=== PATIENT | male | born 1995 | race African-American/Black ===

== ENCOUNTER 2022-11-13 13:13 | Emergency (ER) | payer MEDICAID, SELFPAY ==
--- NOTE | ~2022-11-13 | XR_ITS ---
EXAMINATION: XR ANKLE, LEFT CLINICAL INFORMATION: Swelling pain COMPARISON: None available. TECHNIQUE: AP, lateral, and mortise views of the left ankle. FINDINGS: No acute visible fracture or dislocation. The ankle mortise is symmetric. Slight spurring the dorsal midfoot. Soft tissue prominence along the medial malleolus. XR/XR ankle LT min 3V IMPRESSION: 1. No acute visible fracture or dislocation. 2. Slight spurring the dorsal midfoot. 3. Soft tissue prominence along the medial malleolus.
[2022-11-13 13:22] VITALS: BP 115/62; BP 118/76; PULSE 85; PULSE 95; RESP 18; TEMP 36.7; O2SAT 97; BMI 36.7
[2022-11-13 15:13] LABS: D Dimer High Sensitivity < 150 NG/ML
--- NOTE | 2022-11-13 15:19 | ED.GENADULT ---
HPI - General Adult General Chief complaint: General Medical Stated complaint: L LEG SWELLING FROM SNF PER EMS Time Seen by Provider: 11/13/22 13:32 Source: patient and EMS Mode of arrival: EMS History of Present Illness HPI narrative: 27-year-old male who is brought in from care 1 where staff reports that patient has swelling to left ankle in foot, mobile x-ray was apparently canceled. Patient denies any traumatic injury and states that he barely walks at baseline and denies any fevers or chills. Related Data Allergies Allergy/AdvReac Type Severity Reaction Status Date / Time No Known Allergies Allergy Verified 11/13/22 13:31 Review of Systems Review of Systems: Pertinent positives and negatives as stated in HPI PMFSH Past Medical History Source: nursing notes reviewed Social History Social History Alcohol intake: former Smoked in Last 30 Days: Yes Use of substances other than those prescribed or required for medical reasons: Yes Substance Use Type: Marijuana Advance Directives: No Physical Exam ED Vital Signs: Vital Signs - 24 hr 11/13/22 13:22 Temperature 98.0 F Pulse Rate 85 Respiratory Rate 18 Blood Pressure 115/62 Pulse Oximetry 97 Oxygen Delivery Method Room Air BMI result Body Mass Index 36.7 VITAL SIGNS: Reviewed. GENERAL: Well developed, well nourished, in no acute distress. HEAD: Normocephalic/atraumatic EYES: PERRLA, EOMI LUNGS: Normal breath sounds. No adventitious sounds or accessory muscle use. SpO2<97> CARDIOVASCULAR: Regular rate and rhythm without noted murmurs ABDOMEN: Soft, non-tender, non-distended with bowel sounds. MUSCULOSKELETAL: No tenderness, deformities, or effusions noted on gross inspection. EXTREMITIES: No cyanosis, clubbing or edema; LEFT ANKLE: There is 1+ pitting edema to the medial malleolus, there is no erythema or induration, foot is warm, pulses are palpable, no proximal swelling or enlargement, on comparison to right ankle left ankle is fairly edematous, there is minimal tenderness to palpation. SKIN: Inspection of the skin reveals no rashes NEUROLOGIC: Alert and oriented x 3. Strength and sensation to light touch were grossly intact x 4 at baseline patient is primarily bed ridden. Medical Decision Making Medical Decision Making MDM Narrative: 27-year-old male with atraumatic trace left ankle swelling without clinical exam or history to suggest cellulitis, review of x-ray is negative for fracture or dislocation and otherwise my interpretation is in agreement with radiology's impression. D-dimer is negative and low clinical suspicion for DVT. Patient will have Wellington wrap put in place and he can undergo further outpatient workup as indicated by primary care provider. Differential Diagnosis Differential Diagnoses: The differential diagnosis associated with the presentation includes Please see the discussion above Admission/Observation Consideration of admission/observation: Escalation of care including admission/observation considered Please see the discussion above Lab Data MDM Lab Attestation statement: I reviewed the patient's lab results. Please see the discussion above Labs: Lab Results 11/13/22 Range/Units 14:50 D-Dimer High Sensitivty < 150 NG/ML Radiology Impression Radiologist Impression: No fracture dislocation, otherwise my interpretation is in agreement with radiology's impression. Discharge Plan Discharge Clinical Impression: Left ankle swelling Patient Disposition: Xfer Other Instructions: How to Use an Elastic Bandage (ED), Swollen Ankle Joint (ED) Additional Instructions: 1. Resume all home medications. 2. Follow-up with primary care provider Tuesday morning. Return to the ER for any worsening symptoms. Referrals: Marcos Garcia DO [Primary Care Provider] -
[2022-11-13 15:43] VITALS: BP 120/74; PULSE 62; RESP 18; TEMP 36.6; O2SAT 98
== END 2022-11-13 17:00 | disposition other institution (70) ==
PROVIDERS: Emergency Provider Student in an Organized Health Care Education/Training Program; PCP Hospitalist
DX: M25.472 Effusion, left ankle (principal); R60.0 Localized edema
CPT/HCPCS: 36415; 73610; 85379; 99283; 99284

== ENCOUNTER 2023-02-21 16:09 | Outpatient (REF) | payer MEDICAID, SELFPAY ==
--- NOTE | ~2023-02-21 | MR_ITS ---
EXAMINATION: MR RIGHT ANKLE WITHOUT CONTRAST MRI RIGHT FOOT WITHOUT CONTRAST CLINICAL INFORMATION: Edema. Unable to bear weight. COMPARISON: X-rays of the left ankle October 2022. TECHNIQUE: MRI of the ankle was performed using routine sequences on a high-field scanner. MRI of the right foot without contrast using routine sequence on a high-field MRI scanner. FINDINGS: LEFT ANKLE: Subcutaneous soft tissues: Generalized edema circumferentially about the ankle. Plantar fascia: Normal. Muscles/tendons: Mild heterogeneity of the distal Achilles tendon compatible with tendinosis or minimal intrasubstance partial tearing involving the distal 1 cm of the tendon. Remaining muscles and tendons unremarkable. Bursa: Normal. Neurovascular structures/tarsal tunnel: Normal. Ligaments: Anterior talofibular ligament: Attenuated compatible with old partial tear. Remaining ligaments intact. Bone/cartilage: Talonavicular joint: There is focal cartilage loss along the dorsal aspect of the joint with subchondral cystic change and some edema on the talar side of the joint. Overall mild/focal arthrosis. Remaining bone and joints normal. LEFT FOOT: Subcutaneous soft tissues: Mild generalized edema along the dorsal aspect of the foot. Distal plantar fascia: Normal. Muscles/tendons: Minimal increased T2 signal within the plantar muscles primarily the flexor digitorum brevis compatible with muscle contusion or mild muscle strain. Tendons intact. Ligaments and capsular structures: Normal. Bone/cartilage: There is prominent flexion at the MTP joints. The bone and joints are otherwise unremarkable. Neurovascular structures: Normal. MR/MR ankle LT wo con IMPRESSION: RIGHT ANKLE: 1. Mild generalized edema in the subcutaneous soft tissues. 2. Mild abnormality of the distal Achilles tendon compatible with tendinosis or minimal intrasubstance partial tearing. 3. Old partial tear of the anterior talofibular ligament. 4. Mild/focal arthrosis of the talonavicular joint. LEFT FOOT: 1. Mild abnormality of the plantar muscles compatible with muscle contusion or mild muscle strain. 2. Prominent flexion at the MTP joints.
== END 2023-02-21 16:10 | disposition home or self-care (01) ==
LOC: HO.MRI 16:09
PROVIDERS: PCP Hospitalist; Visit Provider Hospitalist
DX: M25.572 Pain in left ankle and joints of left foot (principal); R60.9 Edema, unspecified
CPT/HCPCS: 73718; 73721

== ENCOUNTER 2023-03-15 10:03 | Outpatient (REF) | payer MEDICAID, SELFPAY ==
--- NOTE | ~2023-03-15 | US_ITS ---
EXAMINATION: US ABDOMEN COMPLETE CLINICAL INFORMATION: Elevation of levels of liver transaminase levels. COMPARISON: None available. TECHNIQUE: Real-time imaging of the abdominal viscera. Technically difficult study secondary to patient being scanned in a chair. FINDINGS: PANCREAS: Limited visualization. ABDOMINAL AORTA: Visualized portions are normal. INFERIOR VENA CAVA: Visualized portions are normal. LIVER: Enlarged. The liver contour is normal. There is diffuse increased liver parenchymal echogenicity, consistent with hepatic steatosis. No focal hepatic lesion. There is no intrahepatic biliary duct dilatation seen. GALLBLADDER: The gallbladder is physiologically distended. Multiple mobile gallstones are present. No evidence of gallbladder wall thickening or pericholecystic fluid. Negative sonographic Taylor sign. COMMON BILE DUCT: Normal in caliber measuring 0.4 cm in diameter. Limited visualization. RIGHT KIDNEY: No hydronephrosis. No renal calculi or focal parenchymal lesions. The kidney measures 12.6 cm in maximum dimension. LEFT KIDNEY: No hydronephrosis. No renal calculi or focal parenchymal lesions. The kidney measures 11.7 cm in maximum dimension. Limited visualization. SPLEEN: The spleen measures 13.0 cm in maximum dimension. FREE FLUID: None. US/US abdomen complete IMPRESSION: Technically limited study. Hepatomegaly and hepatic steatosis. Mild splenic enlargement. Cholelithiasis without sonographic evidence of acute cholecystitis.
== END 2023-03-15 10:04 | disposition home or self-care (01) ==
LOC: HO.US 10:03
PROVIDERS: PCP Hospitalist; Visit Provider Hospitalist
DX: R74.01 Elevation of levels of liver transaminase levels (principal)
CPT/HCPCS: 76700

== ENCOUNTER 2023-03-24 14:55 | Outpatient (AMB) | payer MEDICAID, SELFPAY ==
--- NOTE | 2023-03-24 15:12 | MHC.OFFVIS ---
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 States his pain started about 2-3 months ago. States he is having pain when he applies pressure while doing P.T. Denies any recent injury, numbness or tingling. 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 He states he has pain in his right ankle which is aggravated with ambulation. He is working on physical therapy for his ankle. He denies any numbness or tingling and has not had any recent injury. [facility] Social History Alcohol intake: former Substance Use Type: Marijuana Review of Systems Const All systems reviewed & are unremarkable except as noted in HPI and below Physical Exam Vital Signs: BMI result Body Mass Index 36.6 Const General: cooperative, healthy appearing, comfortable, no acute distress, well developed and alert Orientation/consciousness: patient oriented x3 HEENT Head: Yes normal to inspection, Yes normocephalic and Yes atraumatic Eyes General: appearance normal, both eyes and all related structures Resp Effort & Inspection: normal respiratory effort and able to speak in complete sentences Cardio Rate: regular rate Peripheral pulses: Peripheral pulses 2+ throughout GI Palpation (GI): Soft to palpation Skin Lesions: no lesions Rashes: no rashes Neuro General: patient oriented x3 Extrem Other: Left ankle: Normal to inspection. No bony abnormality, no swelling. There is no significant point of tenderness over the medial or lateral malleolus. No pain over the syndesmosis. I can perform ROM without discomfort. NVI. Results Reviewed Results Reviewed: XR ankle LT min 3V 11/13/22 IMPRESSION: 1. No acute visible fracture or dislocation. 2. Slight spurring the dorsal midfoot. 3. Soft tissue prominence along the medial malleolus. MRI Left ankle 02/21/23 IMPRESSION: LEFT ANKLE: 1. Mild generalized edema in the subcutaneous soft tissues. 2. Mild abnormality of the distal Achilles tendon compatible with tendinosis or minimal intrasubstance partial tearing. 3. Old partial tear of the anterior talofibular ligament. 4. Mild/focal arthrosis of the talonavicular joint. Assessment & Plan Assessment & Plan (1) Left ankle sprain: Code(s): S93.402A - Sprain of unspecified ligament of left ankle, initial encounter Plan He resides at [facility]. He is currently doing physical therapy. I encouraged him to continue working with physical therapy for ROM, strength training and he can weight bear as tolerated. If symptoms persist or worsens, patient will contact the office, otherwise follow-up as needed. Patient Instructions: Scribed for Rambo Florence PA-C, by Randall Shaw medical data analyst, on 03/24/2023 at 3:00 PM EST. I, Rambo Florence PA-C, have personally reviewed and agree with the information entered by the scribe. Coding Level of Care Code New Pt Level 3 (35145) Diagnoses Left ankle sprain S93.402A
[2023-03-24 15:15] VITALS: BMI 36.6
== END 2023-03-24 15:52 | disposition home or self-care (01) ==
PROVIDERS: PCP Hospitalist; Visit Provider Physician Assistant
DX: S93.402A Sprain of unspecified ligament of left ankle, initial encounter (principal)
CPT/HCPCS: 99203

== ENCOUNTER → 2023-03-24 14:55 | Outpatient (BNVA) | payer MEDICAID, SELFPAY | PROVIDERS: PCP Hospitalist; Visit Provider Physician Assistant | DX: S93.402A Sprain of unspecified ligament of left ankle, initial encounter (principal) | CPT/HCPCS: 99202 ==

== ENCOUNTER → 2023-07-25 08:07 | Outpatient (BNVA) | payer MEDICAID, SELFPAY | PROVIDERS: PCP Hospitalist; Visit Provider Physician Assistant Surgical ==

== ENCOUNTER 2024-03-12 13:32 | Emergency (ER) | payer MEDICAID, SELFPAY ==
--- NOTE | ~2024-03-12 | XR_ITS ---
EXAMINATION: XR SHOULDER, LEFT CLINICAL INFORMATION: fall, shoulder pain COMPARISON: Fall. patient paralyzed on left side- unable to move arm, pt states fell out of bed, best obtainable TECHNIQUE: Three views of the left shoulder. FINDINGS: Exam limited by positioning. There is osteopenia. No displaced fracture. No dislocation. The acromioclavicular joint is normal. If pain persists consider follow-up study. XR/XR shoulder LT min 2V IMPRESSION: Exam limited by positioning. No displaced fracture. No dislocation. If pain persists consider follow-up studies. Electronically signed by: Jeffy Romero MD 03/12/2024 04:12 PM [facility]
--- NOTE | ~2024-03-12 | XR_ITS ---
EXAMINATION: XR ELBOW, LEFT CLINICAL INFORMATION: pain, fall COMPARISON: None available. TECHNIQUE: Two views of the left elbow. FINDINGS: The bones and soft tissues are normal. No fracture or joint effusion. Alignment is anatomic. Joint spaces are maintained. XR/XR elbow LT 2V IMPRESSION: Normal left elbow. Electronically signed by: Jeffy Romero MD 03/12/2024 04:10 PM [facility]
[2024-03-12 13:41] VITALS: BP 134/81; BP 138/80; PULSE 60; PULSE 76; RESP 16; TEMP 36.7; O2SAT 93; O2SAT 94; BMI 40.0
--- NOTE | 2024-03-12 14:29 | PC.NURSE ---
pt to xray at this time.
--- NOTE | 2024-03-12 14:53 | ED.EXTPRO ---
HPI - Extremity Problem General Chief complaint: Extremity Injury, Upper Stated complaint: FALL,LT SHLDR PAIN PER EMS Time Seen by Provider: 03/12/24 14:01 Source: EMS and RN notes reviewed Mode of arrival: EMS Limitations: other (TBI) History of Present Illness ED Provider: Dr. Isis Guerra HPI Narrative: Patient comes to the emergency room complaining of left shoulder pain. According to EMS, the staff at [facility] said that the patient had an unwitnessed fall 48 hours ago. Today, an x-ray was done and showed a fracture, patient was put in an immobilizer, EMS was called and brought to the emergency room. Patient can not give any significant history due to a previous traumatic brain injury. Related Data Home Medications ?Medication ?Instructions ?Recorded ?Confirmed aripiprazole 2 mg tablet 2 mg PO BEDTIME 03/24/23 baclofen 5 mg tablet 5 mg PO BEDTIME 03/24/23 trazodone 50 mg tablet 25 mg PO DAILY 03/24/23 donepezil 10 mg tablet 10 mg PO BEDTIME 07/25/23 propranolol 10 mg tablet 10 mg PO BID 07/25/23 sennosides 8.6 mg capsule (senna) 8.6 mg PO DAILY 07/25/23 sodium phosphates 19 gram-7 118 ml [place] DAILY PRN 07/25/23 gram/118 mL enema (Fleet Enema) Previous Rx's ?Medication ?Instructions ?Recorded ibuprofen 600 mg tablet 600 mg PO Q8H PRN fever or pain 03/12/24 #20 tabs Allergies Allergy/AdvReac Type Severity Reaction Status Date / Time No Known Allergies Allergy Verified 03/12/24 13:42 Review of Systems Review of Systems: Yes Other (TBI) [facility] Past Medical History Medical History (Updated 03/12/24 @ 16:27 by Isis Guerra MD) Traumatic brain injury Social History Social History Alcohol intake: former Substance Use Type: Marijuana Advance Directives: No Advance Directives Information Provided: Yes Do you have a plan to hurt others: No Plan Physical Exam Vital Signs: Vital Signs: Last Vital Signs Temp 98.1 F 03/12/24 13:41 Pulse 60 03/12/24 13:41 Resp 16 03/12/24 13:41 BP 138/80 03/12/24 13:41 Pulse Ox 93 03/12/24 13:41 O2 Del Method Room Air 03/12/24 13:41 BMI result Body Mass Index 40.0 Const: Other: Appearance: Alert. Oriented X3. No acute distress. Eyes: Pupils equal, round and reactive to light. ENT: Pharynx normal. Neck: Normal inspection. Neck supple. No lymph nodes noted. No crepitus CVS: Normal heart rate and rhythm. Pulses normal. Normal S1 and S2 Respiratory: No respiratory distress. Breath sounds normal. No Wheezing. No rales Abdomen: Soft and nontender. No rigidity. No distention. Skin: Skin warm and dry. Normal skin color. Normal skin turgor. Extremities: No lower extremity edema. No Lacerations. No Rash. Left arm is on a sling. Patient does not seem to be tender, however refusing to move the left arm/abduct left arm. Neuro: Oriented X 3. No motor deficit. No sensory deficit. Moving all extremities. No slurred speech. CN 2 through 12 grossly intact Psych: calm, cooperative, normal affect Course Course Course Narrative: Left Elbow and shoulder x-ray pending Medical Decision Making Medical Decision Making MDM Narrative: My interpretation x-ray of the shoulder and the elbow on the left: No obvious abnormality. -radiology report: No obvious fracture or dislocation -patient's arm was placed on a sling. Patient will follow-up with orthopedics Differential Diagnosis Differential Diagnoses: The differential diagnosis associated with the presentation includes (Left shoulder dislocation, fracture, contusion, labral tear, rotator cuff tear injury) Independent Interpretation I performed an independent interpretation of an: Plain X-Ray Radiology Impression Discussion of test interpretation with radiology: I have reviewed the radiologist's reading. Radiologist Impression: FINDINGS: Exam limited by positioning. There is osteopenia. No displaced fracture. No dislocation. The acromioclavicular joint is normal. If pain persists consider follow-up study. XR/XR shoulder LT min 2V IMPRESSION: Exam limited by positioning. No displaced fracture. No dislocation. If pain persists consider follow-up studies. Discharge Plan Discharge Clinical Impression: Injury of left shoulder Patient Disposition: Home, Self-Care Instructions: How to Use a Sling (ED) Additional Instructions: Please follow-up with your primary care physician tomorrow. If you have any worsening or new symptoms, please return to the emergency room or call 911 Prescriptions: New ibuprofen 600 mg tablet 600 mg PO Q8H PRN (Reason: fever or pain) Qty: 20 0RF No Action aripiprazole 2 mg tablet 2 mg PO BEDTIME baclofen 5 mg tablet 5 mg PO BEDTIME trazodone 50 mg tablet 25 mg PO DAILY donepezil 10 mg tablet 10 mg PO BEDTIME Fleet Enema 19-7 gram/118 mL enema 118 ml [place] DAILY PRN propranolol 10 mg tablet 10 mg PO BID senna 8.6 mg capsule 8.6 mg PO DAILY Referrals: Timo Thompson MD [Physician] - 03/13/24 Print Language: Welsh
[2024-03-12 16:22] VITALS: BP 152/72; PULSE 60; RESP 18; TEMP 36.8; O2SAT 97
--- NOTE | 2024-03-12 16:41 | PC.NURSE ---
pt up for discharge. transportation being arranged via BLS. ETA unknown - will notify pt as well as [facility] when able.
[2024-03-12 18:51] VITALS: BP 152/72; PULSE 60; RESP 18; TEMP 36.8; O2SAT 97
--- NOTE | 2024-03-12 18:51 | PC.NURSE ---
spoke w/ Iglesia RN at [facility] for report. pt picked up via [facility] at this time.
== END 2024-03-12 18:52 | disposition home or self-care (01) ==
PROVIDERS: Emergency Provider Emergency Medicine; PCP Hospitalist
DX: S49.92XA Unspecified injury of left shoulder and upper arm, initial encounter (principal); X58.XXXA Exposure to other specified factors, initial encounter; Y93.9 Activity, unspecified; Y92.9 Unspecified place or not applicable; Y99.9 Unspecified external cause status; M25.512 Pain in left shoulder; Z87.820 Personal history of traumatic brain injury; Z79.899 Other long term (current) drug therapy
CPT/HCPCS: 73030; 73070; 99283; 99284

== ENCOUNTER 2024-04-04 11:46 | Outpatient (AMB) | payer MEDICAID, SELFPAY ==
--- NOTE | 2024-04-04 11:49 | A.OFFVIS_ITS ---
Vital Signs 04/04/24 11:50 Height 6 ft Weight 295 lb BMI 40.0 Intake Visit Reasons: Newprob-left shoulder pain Intake Note: David a 28 year old right hand dominant male who presents today for an evaluation of left shoulder pain. Patient reports having an injury to his left shoulder from a fall. He avoids using his arm. Allergies No Known Allergies Allergy (Verified 04/04/24 12:03) Medication List - Last Reconciled 04/04/24 by Rambo Florence PA-C acetaminophen 650 mg PO Q6H PRN aripiprazole 2 mg PO BEDTIME baclofen 5 mg PO BEDTIME clonidine HCl ER 0.1 mg PO BID donepezil 10 mg PO BEDTIME ibuprofen 600 mg PO Q8H PRN propranolol 10 mg PO BID sennosides (senna) 8.6 mg PO DAILY sodium phosphates 19-7 gram/118 mL (Fleet Enema) 118 mL [place] DAILY PRN trazodone 25 mg PO DAILY HPI HPI Newprob-left shoulder pain: Details: 28-year-old right hand dominant male who presents to the office today for an evaluation of left shoulder pain. He reports he sustained a fall on his left shoulder about 3 weeks ago. He currently states he does not have much pain owever he avoids using his arm. [facility] Medical History (Updated 04/04/24 @ 13:14 by Rambo Florence PA-C) Traumatic brain injury Social History Alcohol intake: former Substance Use Type: Marijuana Review of Systems Const All systems reviewed & are unremarkable except as noted in HPI and below Physical Exam Vital Signs: BMI result Body Mass Index 40.0 Extrem Other: Left shoulder: Normal to inspection. No tenderness to palpation. Office Procedures AMB Fracture Care Fracture Billing Code: Fracture Billing Code Results Reviewed Results Reviewed: Xrays were obtained in the office today and personally reviewed by me of the left shoulder show proximal humerus fracture Assessment & Plan Assessment & Plan (1) Closed fracture of left proximal humerus: Code(s): S42.202A - Unspecified fracture of upper end of left humerus, initial encounter for closed fracture Category: Medical Qualifiers: Encounter type: initial encounter Fracture morphology: other fracture Fracture alignment: nondisplaced Qualified Code(s): S42.295A - Other nondisplaced fracture of upper end of left humerus, initial encounter for closed fracture Plan He will continue activities as tolerated as he is hemiplegic and wheelchair bound. I would like to see him back in 6 weeks with x-rays, sooner if needed. Patient Instructions: Scribed for Rambo Florence PA-C, by Randall Shaw medical service representative, on 04/04/2024 at 11:45 AM EST.? I, Rambo Florence PA-C, have personally reviewed and agree with the information entered by the scribe. Coding Level of Care Code Est Pt Level 3 (07547) Complex EM visit Add On G2211 Diagnoses Other closed nondisplaced fracture of proximal end of left humerus, initial encounter S42.295A Encounter type: initial encounter Fracture morphology: other fracture Fracture alignment: nondisplaced CPT Codes Fracture Care - Fracture Billing Code: Fracture Billing Code ([id number])
[2024-04-04 11:50] VITALS: BMI 40.0
== END 2024-04-04 12:07 | disposition home or self-care (01) ==
PROVIDERS: PCP Hospitalist; Visit Provider Physician Assistant
DX: S42.295A Other nondisplaced fracture of upper end of left humerus, initial encounter for closed fracture (principal)
CPT/HCPCS: 99213; G2211

== ENCOUNTER → 2024-04-04 11:46 | Outpatient (BNVA) | payer MEDICAID, SELFPAY | PROVIDERS: PCP Hospitalist; Visit Provider Physician Assistant | DX: S42.295A Other nondisplaced fracture of upper end of left humerus, initial encounter for closed fracture (principal); W05.0XXA Fall from non-moving wheelchair, initial encounter; Y93.9 Activity, unspecified; Y92.9 Unspecified place or not applicable; Y99.9 Unspecified external cause status; G81.90 Hemiplegia, unspecified affecting unspecified side; Z99.3 Dependence on wheelchair | CPT/HCPCS: 99212 ==

== ENCOUNTER 2024-05-10 08:26 | Outpatient (REF) | payer MEDICAID, SELFPAY ==
--- NOTE | ~2024-05-10 | US_ITS ---
EXAMINATION: US ABDOMEN LIMITED HISTORY: abnormal labs TECHNIQUE: Real-time grayscale ultrasound imaging of the right upper quadrant was performed and images were reviewed. COMPARISON: Comparison is made with the prior examination dated 03/15/2023. FINDINGS: The examination is technically limited due to difficulty in patient positioning and patient body habitus. Liver: The liver is normal in size, but demonstrates increased echotexture, consistent with steatosis. No focal mass or intrahepatic biliary ductal dilatation is identified. Gallbladder and biliary tree: There are multiple calculi in the gallbladder. There is no wall thickening or pericholecystic fluid. There is no sonographic Taylor sign. The common bile duct is normal in caliber measuring 3 mm. Right Kidney: The right kidney measures 12.3 cm in length. The right kidney is unremarkable, without evidence of masses, hydronephrosis, or calculi. Pancreas: The pancreas is obscured by bowel gas. Abdominal aorta and inferior vena cava: The visualized portions of the abdominal aorta and inferior vena cava are normal in caliber. There is no free fluid in the right upper quadrant. US/US abdomen limited IMPRESSION: Limited examination as described. Hepatic steatosis. Cholelithiasis without evidence of acute cholecystitis. Electronically signed by: Alfredito Reardon MD 05/10/2024 01:16 PM EST
== END 2024-05-10 08:27 | disposition home or self-care (01) ==
LOC: HO.US 08:26
PROVIDERS: PCP Hospitalist; Visit Provider Hospitalist
DX: R10.11 Right upper quadrant pain (principal)
CPT/HCPCS: 76705

== ENCOUNTER → 2024-05-10 08:49 | Outpatient (BNV) | payer MEDICAID, SELFPAY | PROVIDERS: PCP Hospitalist; Visit Provider Radiology Diagnostic Radiology | DX: R79.9 Abnormal finding of blood chemistry, unspecified (principal) | CPT/HCPCS: 76705 ==

== ENCOUNTER 2024-05-23 07:21 | Outpatient (REF) | payer MEDICAID, SELFPAY ==
--- NOTE | ~2024-05-23 | XR_ITS ---
CLINICAL HISTORY: M25.512 - Pain in left shoulder Radiographs of the left shoulder, 2 views Comparison: 03/12/24 Findings: There is osseous bridging of the previously seen fracture of the proximal humerus with some residual lucency. No dislocation. The joint spaces are preserved without osteophytosis. Bone mineralization is normal. No soft tissue swelling. Impression: Healing fracture of the proximal humerus. This document has been electronically signed by: Skye Real MD on 05/23/2024 17:59:47
--- OUTSIDE RECORDS SUMMARY | 2024-05-23 07:23 | XMS_ITS | Encounter Summary ---
Author Organization [facility] Address [address] [place] [address] Care Team Providers Care Ventilation Worker Name Role Phone Marcos Garcia MD Primary Care Provider [phone] Encounter Details Date Type Department Care Team (Late st Contact Info) Description 02/29/2024 Lab Requisition [facility] Lab [address] [facility] [employer] [place] [address] Marcos Garcia MD [address] [place] [address] [address] [place] Essential (primary) hypertension Social History Tobacco Use Types Packs/Day Years Used Date Smoking Tobacco: Never Assessed Sex and Gender Information Value Date Recorded Sex Assigned at Not on file Gender Identity Not on file Sexual Orientation Not on file documented as of this encounter Plan of Treatment Not on file documented as of this encounter Procedures Procedure Name Priority Date/Time Associated Diagnosis Comments COMPLETE BLOOD COUNT Routine 02/29/2024 7:54 AM EST Essential (primary) hypertension AMMONIA Routine 02/29/2024 7:54 AM EST Essential (primary) hypertension CARBAMAZEPINE LEVEL, TOTAL Routine 02/29/2024 7:54 AM EST Essential (primary) hypertension documented in this encounter Results * Complete blood count (02/29/2024 7:54 AM EST) WBC 5.9 4.8 - 10.8 K/mcL LAB HEMETOLOGY METHOD 02/29/2024 9:09 AM EST [facility] LAB RBC 4.60 4.50 - 5.50 M/mcL LAB HEMETOLOGY METHOD 02/29/2024 9:09 AM EST [facility] LAB Hemoglobin 14.5 13.5 - 17.5 g/dL LAB HEMETOLOGY METHOD 02/29/2024 9:09 AM EST [facility] LAB Hematocrit 43.5 42.0 - 54.0 % LAB HEMETOLOGY METHOD 02/29/2024 9:09 AM [facility] LAB MCV 95.6 79.0 - 98.0 FL LAB HEMETOLOGY METHOD 02/29/2024 9:09 AM EST [facility] LAB MCH 31.9 27.0 - 32.0 pcg LAB HEMETOLOGY METHOD 02/29/2024 9:09 AM EST [facility] LAB MCHC 33.3 32.0 - 37.0 g/dL LAB HEMETOLOGY METHOD 02/29/2024 9:09 AM [facility] LAB RDW 12.2 11.0 - 15.0 % LAB HEMETOLOGY METHOD 02/29/2024 9:09 AM [facility] LAB Platelets 211 130 - 400 K/mcL LAB HEMETOLOGY METHOD 02/29/2024 9:09 AM EST [facility] LAB MPV 9.8 7.0 - 11.0 FL LAB HEMETOLOGY METHOD 02/29/2024 9:09 AM [facility] LAB NRBC 0.0 <1.0 % LAB HEMETOLOGY METHOD 02/29/2024 9:09 AM [facility] LAB NRBC Absolute 0.00 <0.10 K/mcL LAB HEMETOLOGY METHOD 02/29/2024 9:09 AM EST [facility] LAB Blood Venous blood specimen / Unknown 02/29/2024 7:54 AM EST 02/29/2024 8:54 AM EST Marcos Garcia MD LAB BLOOD ORDERABLES [facility] LAB [address] [place] [address], * (ABNORMAL) Carbamazepine level, total (02/29/2024 7:54 AM EST) Carbamazepine Level 6.5(L) 8.0 - 12.0 mcg/mL LAB CHEMISTRY METHOD 02/29/2024 9:26 AM EST [facility] LAB Blood Venous blood specimen / Unknown 02/29/2024 7:54 AM EST 02/29/2024 8:54 AM EST Marcos Garcia MD LAB BLOOD ORDERABLES Performing Organization Address City/[facility]/ZIP Co de Phone Number [facility] LAB [address] [place] [address], [place] [phone] * (ABNORMAL) Ammonia (02/29/2024 7:54 AM EST) Ammonia 39(H) 11 - 35 mcmol/L LAB CHEMISTRY METHOD 02/29/2024 9:26 AM EST [facility] LAB Blood Venous blood specimen / Unknown 02/29/2024 7:54 AM EST 02/29/2024 8:54 AM EST Marcos Garcia MD LAB BLOOD ORDERABLES Performing Organization Address City/[facility]/ZIP Co de Phone Number [facility] [address] [place] [address], [place] [phone] documented in this encounter Visit Diagnoses Diagnosis Essential (primary) hypertension Unspecified essential hypertension documented in this encounter Care Teams Ventilation Worker Relationship Specialty Start Date End Date Marcos Garcia MD [address] [place] [address] Dr [address] [place], [place] PCP - General Internal Medicine 05/15/24 documented as of this encounter
--- OUTSIDE RECORDS SUMMARY | 2024-05-23 07:23 | XMS_ITS | Clinical Summary ---
Author Organization 299 [facility] Address [address] [place] [address] Phone Care Team Providers Care Wire Galvanizer Name Role Phone Marcos Garcia MD Primary Care Provider [phone] Encounters Date Type Department Care Team Description 05/03/2024 Lab Requisition [facility] Lab [address] [place] [address] Marcos Garcia MD Essential (primary) hypertension 02/29/2024 Lab Requisition [facility] Lab [address] [place] [address] Marcos Garcia MD Essential (primary) hypertension from Last 3 Months Social History Tobacco Use Types Packs/Day Years Used Date Smoking Tobacco: Never Assessed Sex and Gender Information Value Date Recorded Sex Assigned at Not on file Gender Identity Not on file Sexual Orientation Not on file Plan of Treatment Health Maintenance Due Date Last Done Comments DTaP,Tdap,and Td Vaccines (1 - Tdap) 2013 Hepatitis B Vaccines (1 of 3 - 19+ 3-dose series) 2013 Cholesterol Screening (Lipid Panel) 05/13/2023 Depression Screening 05/13/2023 HIV Screening 05/13/2023 Hepatitis C Screening 05/13/2023 Social Influencers of Health Screening 05/13/2023 COVID-19 Vaccine ( - 2023-2 5 season) 2023 Influenza Vaccine (#1) 2023 Hypertension/CHF/CAD Annual BMP Blood Test 05/03/2025 05/03/2024 HIB Vaccines Aged Out No longer eligi ble based on patient's age to complete this topic HPV Vaccines Aged Out No longer eligi ble based on patient's age to complete this topic Hepatitis A Vaccines Aged Out No long er eligible based on patient's age to complete this topic IPV Vaccines Aged Out No longer eligi ble based on patient's age to complete this topic MMR Vaccines Aged Out No longer eligi ble based on patient's age to complete this topic Meningococcal ACWY Vaccine Aged Out N o longer eligible based on patient's age to complete this topic Pneumococcal Vaccine: Pediat rics (0 to 5 Years) and At-Risk Patients (6 to 64 Years) Aged Out No longer eligi ble based on patient's age to complete this topic RSV Immunization Patients Un bebe 20 months Aged Out No longer eligible b ased on patient's age to complete this topic Varicella Vaccines Aged Out No longer eligible based on patient's age to complete this topic Procedures Procedure Name Priority Date/Time Associated Diagnosis Comments COMPREHENSIVE METABOLIC PANEL Routine 05/03/2024 6:53 AM EST Essential (primary) hypertension COMPLETE BLOOD COUNT Routine 02/29/2024 7:54 AM EST Essential (primary) hypertension CARBAMAZEPINE LEVEL, TOTAL Routine 02/29/2024 7:54 AM EST Essential (primary) hypertension AMMONIA Routine 02/29/2024 7:54 AM EST Essential (primary) hypertension from Last 3 Months Results * (ABNORMAL) Comprehensive metabolic panel (05/03/2024 6:53 AM EST) Sodium 137 133 - 145 mmol/L LAB CHEMISTRY METHOD 05/03/2024 8:11 AM [facility] LAB Potassium 3.8 3.5 - 5.5 mmol/L LAB CHEMISTRY METHOD 05/03/2024 8:11 AM [facility] LAB Chloride 104 96 - 110 mmol/L LAB CHEMISTRY METHOD 05/03/2024 8:11 AM [facility] LAB CO2 27 21 - 32 mmol/L LAB CHEMISTRY METHOD 05/03/2024 8:11 AM [facility] LAB Anion Gap 6 3 - 11 LAB CHEMISTRY METHOD 05/03/2024 8:11 AM [facility] LAB Glucose 100 70 - 100 mg/dL LAB CHEMISTRY METHOD 05/03/2024 8:11 AM [facility] LAB BUN 9 5 - 25 mg/dL LAB CHEMISTRY METHOD 05/03/2024 8:11 AM [facility] LAB Creatinine 0.61(L) 0.70 - 1.30 mg/dL LAB CHEMISTRY METHOD 05/03/2024 8:11 AM [facility] LAB eGFR 133 >=60 mL/min/1. 73m2 LAB CHEMISTRY METHOD 05/03/2024 8:11 AM [facility] LAB Comment:Calculation based on the??Chronic Kidney Disease Epidemiology Collaboration (CKD-EPI) equation refit??without adjustment for race. BUN/Creatinine Ratio 14.8 LAB CHEMISTRY METHOD 05/03/2024 8:11 AM [facility] LAB Calcium 9.1 8.5 - 10.5 mg/dL LAB CHEMISTRY METHOD 05/03/2024 8:11 AM [facility] LAB AST (SGOT) 56(H) 10 - 42 unit/L LAB CHEMISTRY METHOD 05/03/2024 8:11 AM [facility] LAB ALT (SGPT) 126(H) 10 - 60 unit/L LAB CHEMISTRY METHOD 05/03/2024 8:11 AM [facility] LAB Alkaline Phosphatase 104 42 - 121 unit/L LAB CHEMISTRY METHOD 05/03/2024 8:11 AM [facility] LAB Total Protein 7.2 6.0 - 8.0 g/dL LAB CHEMISTRY METHOD 05/03/2024 8:11 AM [facility] LAB Albumin 4.0 3.2 - 5.0 g/dL LAB CHEMISTRY METHOD 05/03/2024 8:11 AM [facility] LAB Total Bilirubin 0.6 0.0 - 1.4 mg/dL LAB CHEMISTRY METHOD 05/03/2024 8:11 AM [facility] LAB Blood Venous blood specimen / Unknown 05/03/2024 6:53 AM EST 05/03/2024 7:23 AM EST Marcos Garcia MD LAB BLOOD ORDERABLES [facility] LAB [address] [place] [address], * Complete blood count (02/29/2024 7:54 AM EST) [facility] Signature WBC 5.9 4.8 - 10.8 K/mcL LAB HEMETOLOGY METHOD 02/29/2024 9:09 AM [facility] LAB RBC 4.60 4.50 - 5.50 M/mcL LAB HEMETOLOGY METHOD 02/29/2024 9:09 AM [facility] LAB Hemoglobin 14.5 13.5 - 17.5 g/dL LAB HEMETOLOGY METHOD 02/29/2024 9:09 AM [facility] LAB Hematocrit 43.5 42.0 - 54.0 % LAB HEMETOLOGY METHOD 02/29/2024 9:09 AM [facility] LAB MCV 95.6 79.0 - 98.0 FL LAB HEMETOLOGY METHOD 02/29/2024 9:09 AM [facility] LAB MCH 31.9 27.0 - 32.0 pcg LAB HEMETOLOGY METHOD 02/29/2024 9:09 AM [facility] LAB MCHC 33.3 32.0 - 37.0 g/dL LAB HEMETOLOGY METHOD 02/29/2024 9:09 AM [facility] LAB RDW 12.2 11.0 - 15.0 % LAB HEMETOLOGY METHOD 02/29/2024 9:09 AM [facility] LAB Platelets 211 130 - 400 K/mcL LAB HEMETOLOGY METHOD 02/29/2024 9:09 AM [facility] LAB MPV 9.8 7.0 - 11.0 FL LAB HEMETOLOGY METHOD 02/29/2024 9:09 AM [facility] LAB NRBC 0.0 <1.0 % LAB HEMETOLOGY METHOD 02/29/2024 9:09 AM EST [facility] LAB NRBC Absolute 0.00 <0.10 K/mcL LAB HEMETOLOGY METHOD 02/29/2024 9:09 AM EST [facility] LAB Blood Venous blood specimen / Unknown 02/29/2024 7:54 AM EST 02/29/2024 8:54 AM EST Marcos Garcia MD LAB BLOOD ORDERABLES Performing Organization Address City/[facility]/ZIP Co de Phone Number [facility] LAB [address] [place] [address], * (ABNORMAL) Ammonia (02/29/2024 7:54 AM EST) Ammonia 39(H) 11 - 35 mcmol/L LAB CHEMISTRY METHOD 02/29/2024 9:26 AM EST [facility] LAB Blood Venous blood specimen / Unknown 02/29/2024 7:54 AM EST 02/29/2024 8:54 AM EST Marcos Garcia MD LAB BLOOD ORDERABLES Performing Organization Address [facility]/ZIP Co de Phone Number [facility] LAB [address] [place] [address], * (ABNORMAL) Carbamazepine level, total (02/29/2024 7:54 AM EST) Carbamazepine Level 6.5(L) 8.0 - 12.0 mcg/mL LAB CHEMISTRY METHOD 02/29/2024 9:26 AM EST [facility] LAB Blood Venous blood specimen / Unknown 02/29/2024 7:54 AM EST 02/29/2024 8:54 AM EST Marcos Garcia MD LAB BLOOD ORDERABLES Performing Organization Address City/[facility]/ZIP Co de Phone Number [facility] LAB [address] [place] [address], [place] [phone] from Last 3 Months Care Teams Wire Galvanizer Relationship Specialty Start Date End Date Marcos Garcia MD [address] [place] [address] Dr [address] [place] [address] [place] PCP - General Internal Medicine 05/15/24
--- OUTSIDE RECORDS SUMMARY | 2024-05-23 07:23 | XMS_ITS | Encounter Summary ---
Author Organization [facility] Address [address] [place] [address] Care Team Providers Care Dock Grader Name Role Phone Marcos Garcia MD Primary Care Provider [phone] Encounter Details Date Type Department Care Team (Late st Contact Info) Description 05/03/2024 Lab Requisition [facility] Lab 299 [facility] [place] [address] Marcos Garcia MD [address] [place] [address] [address] [place], [place] Essential (primary) hypertension Social History Tobacco Use [...] 05/03/2024 6:53 AM EST Essential (primary) hypertension documented in this encounter Results * (ABNORMAL) Comprehensive metabolic panel (05/03/2024 6:53 AM EST) Sodium 137 133 - 145 mmol/L LAB CHEMISTRY METHOD 05/03/2024 8:11 AM EST [facility] LAB Potassium 3.8 3.5 - 5.5 mmol/L LAB CHEMISTRY METHOD 05/03/2024 8:11 AM EST [facility] LAB Chloride 104 96 - 110 mmol/L LAB CHEMISTRY METHOD 05/03/2024 8:11 AM EST [facility] LAB CO2 27 21 - 32 mmol/L LAB CHEMISTRY METHOD 05/03/2024 8:11 AM EST [facility] LAB Anion Gap 6 3 - 11 LAB CHEMISTRY METHOD 05/03/2024 8:11 AM EST [facility] LAB Glucose 100 70 - 100 mg/dL LAB CHEMISTRY METHOD 05/03/2024 8:11 AM [facility] LAB BUN 9 5 - 25 mg/dL LAB CHEMISTRY METHOD 05/03/2024 8:11 AM [facility] LAB Creatinine 0.61(L) 0.70 - 1.30 mg/dL LAB CHEMISTRY METHOD 05/03/2024 8:11 AM [facility] LAB eGFR 133 >=60 mL/min/1. 73m2 LAB CHEMISTRY METHOD 05/03/2024 8:11 AM [facility] LAB Comment:Calculation based on the??Chronic Kidney Disease Epidemiology Collaboration (CKD-EPI) equation refit??without adjustment for race. BUN/Creatinine Ratio 14.8 LAB CHEMISTRY METHOD 05/03/2024 8:11 AM [facility] LAB Calcium 9.1 8.5 - 10.5 mg/dL LAB CHEMISTRY METHOD 05/03/2024 8:11 AM [facility] LAB AST (SGOT) 56(H) 10 - 42 unit/L LAB CHEMISTRY METHOD 05/03/2024 8:11 AM [facility] LAB ALT (SGPT) 126(H) 10 - 60 unit/L LAB CHEMISTRY METHOD 05/03/2024 8:11 AM [facility] LAB Alkaline Phosphatase 104 42 - 121 unit/L LAB CHEMISTRY METHOD 05/03/2024 8:11 AM [facility] LAB Total Protein 7.2 6.0 - 8.0 g/dL LAB CHEMISTRY METHOD 05/03/2024 8:11 AM [facility] LAB Albumin 4.0 3.2 - 5.0 g/dL LAB CHEMISTRY METHOD 05/03/2024 8:11 AM [facility] LAB Total Bilirubin 0.6 0.0 - 1.4 mg/dL LAB CHEMISTRY METHOD 05/03/2024 8:11 AM [facility] LAB Blood Venous blood specimen / Unknown 05/03/2024 6:53 AM EST 05/03/2024 7:23 AM EST Marcos Garcia MD LAB BLOOD [facility]ABLES [facility] LAB [address] [place] [address], documented in this encounter Visit Diagnoses Diagnosis Essential (primary) hypertension Unspecified essential hypertension documented in this encounter Care Teams Dock Grader Relationship Specialty Start Date End Date Marcos Garcia MD [address] [place] [address] Dr [address] [place] PCP - General Internal Medicine 05/15/24 documented as of this encounter
== END 2024-05-23 07:22 | disposition home or self-care (01) ==
LOC: HO.HOSX 07:21
PROVIDERS: Visit Provider Physician Assistant
DX: M25.512 Pain in left shoulder (principal); S42.202D Unspecified fracture of upper end of left humerus, subsequent encounter for fracture with routine healing
CPT/HCPCS: 73030; 99212

== ENCOUNTER 2024-05-23 09:44 | Outpatient (AMB) | payer MEDICAID, SELFPAY ==
--- NOTE | 2024-05-23 09:58 | MHC.OFFVIS ---
Vital Signs 05/23/24 10:03 Height 6 ft Weight 295 lb BMI 40.0 Intake Visit Reasons: OV- 7wk fu left proximal humerus fx Intake Note: David a 28 year old right hand dominant male who presents today for a follow up left humerus fracture. Patient expresses that he is not having pain at the moment. Allergies No Known Allergies Allergy (Verified 05/23/24 10:02) Medication List - Last Reconciled 05/23/24 by Rambo Florence PA-C acetaminophen 650 mg PO Q6H PRN aripiprazole 2 mg PO BEDTIME baclofen 5 mg PO BEDTIME clonidine HCl ER 0.1 mg PO BID donepezil 10 mg PO BEDTIME ibuprofen 600 mg PO Q8H PRN propranolol 10 mg PO BID sennosides (senna) 8.6 mg PO DAILY sodium phosphates 19-7 gram/118 mL (Fleet Enema) 118 mL [place] DAILY PRN trazodone 25 mg PO DAILY HPI HPI OV- 7wk fu left proximal humerus fx: Details: 28-year-old gentleman returns to the office today follow-up left proximal humerus fracture. 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 Does not report pain. [facility] Medical History (Updated 04/04/24 @ 13:14 by Rambo Florence PA-C) Traumatic brain injury Social History Alcohol intake: former Substance Use Type: Marijuana Review of Systems Const All systems reviewed & are unremarkable except as noted in HPI and below Physical Exam Vital Signs: BMI result Body Mass Index 40.0 Extrem Other: Left shoulder: Normal to inspection. No tenderness to palpation. Results Reviewed Results Reviewed: Xrays were obtained in the office today and personally reviewed by me of the left shoulder show proximal humerus fracture stable compared to last visit. Assessment & Plan Assessment & Plan (1) Closed fracture of left proximal humerus: Code(s): S42.202A - Unspecified fracture of upper end of left humerus, initial encounter for closed fracture Category: Medical Qualifiers: Encounter type: initial encounter Fracture morphology: other fracture Fracture alignment: nondisplaced Qualified Code(s): S42.295A - Other nondisplaced fracture of upper end of left humerus, initial encounter for closed fracture Plan: He can continue with activities as tolerated however he does not use the left upper extremity as he does have paralysis. I did recommend a follow-up in 6 weeks for a final x-ray however he declined and wished to follow-up as needed. He will contact me if there is any questions or concerns otherwise as needed. Orders: Orders XR shoulder LT min 2V Today M25.512 - Pain in left shoulder Coding Level of Care Code Global (11421) Diagnoses Other closed nondisplaced fracture of proximal end of left humerus, initial encounter S42.295A Encounter type: initial encounter Fracture morphology: other fracture Fracture alignment: nondisplaced
[2024-05-23 10:03] VITALS: BMI 40.0
--- OUTSIDE RECORDS SUMMARY | 2024-05-23 10:20 | XMS_ITS | Encounter Summary ---
Author Organization [facility] Address [address] [place] [address] Care Team Providers Care Training Program Developer Name Role Phone Marcos Garcia MD Primary Care Provider Encounter Details Date Type Department Care Team (Late st Contact Info) Description 05/03/2024 Lab Requisition [facility] Lab 299 [facility] [place] [address] Marcos Garcia MD [address] [place] [address] [address] [place], [place] Essential (primary) hypertension Social History Tobacco [...] LAB CHEMISTRY METHOD 05/03/2024 8:11 AM EST [facility] LAB Potassium 3.8 3.5 - 5.5 mmol/L LAB CHEMISTRY METHOD 05/03/2024 8:11 AM EST [facility] LAB Chloride 104 96 - 110 mmol/L LAB CHEMISTRY METHOD 05/03/2024 8:11 AM EST [facility] LAB CO2 27 21 - 32 mmol/L LAB CHEMISTRY METHOD 05/03/2024 8:11 AM EST [facility] LAB Anion Gap 6 3 - 11 LAB CHEMISTRY METHOD 05/03/2024 8:11 AM EST [facility] LAB Glucose 100 70 - 100 mg/dL LAB CHEMISTRY METHOD 05/03/2024 8:11 AM [facility] LAB BUN 9 5 - 25 mg/dL LAB CHEMISTRY METHOD 05/03/2024 8:11 AM [facility] LAB Creatinine 0.61(L) 0.70 - 1.30 mg/dL LAB CHEMISTRY METHOD 05/03/2024 8:11 AM [facility] LAB eGFR 133 >=60 mL/min/1. 73m2 LAB CHEMISTRY METHOD 05/03/2024 8:11 AM [facility] LAB Comment:Calculation based on the??Chronic Kidney Disease Epidemiology Collaboration (CKD-EPI) equation refit??without adjustment for race. BUN/Creatinine Ratio 14.8 LAB CHEMISTRY METHOD 05/03/2024 8:11 AM [facility] LAB Calcium 9.1 8.5 - 10.5 mg/dL LAB CHEMISTRY METHOD 05/03/2024 8:11 AM [facility] LAB AST (SGOT) 56(H) 10 - 42 unit/L LAB CHEMISTRY METHOD 05/03/2024 8:11 AM [facility] LAB ALT (SGPT) 126(H) 10 - 60 unit/L LAB CHEMISTRY METHOD 05/03/2024 8:11 AM [facility] LAB Alkaline Phosphatase 104 42 - 121 unit/L LAB CHEMISTRY METHOD 05/03/2024 8:11 AM [facility] LAB Total Protein 7.2 6.0 - 8.0 g/dL LAB CHEMISTRY METHOD 05/03/2024 8:11 AM [facility] LAB Albumin 4.0 3.2 - 5.0 g/dL LAB CHEMISTRY METHOD 05/03/2024 8:11 AM [facility] Total Bilirubin 0.6 0.0 - 1.4 mg/dL LAB CHEMISTRY METHOD 05/03/2024 8:11 AM [facility] LAB Blood Venous blood specimen / Unknown 05/03/2024 6:53 AM EST 05/03/2024 7:23 AM EST Marcos Garcia MD LAB BLOOD [facility]AB[facility] LAB [address] [place] [address], documented in this encounter Visit Diagnoses Diagnosis Essential (primary) hypertension Unspecified essential hypertension documented in this encounter Care Teams Training Program Developer Relationship Specialty Start Date End Date Marcos Garcia MD [address] [place] [address] [address] [place] PCP - General Internal Medicine 05/15/24 documented as of this encounter
--- OUTSIDE RECORDS SUMMARY | 2024-05-23 10:20 | XMS_ITS | Encounter Summary ---
Author Organization [facility] Address [address] [place] [address] Care Team Providers Care Resident Advisor Name Role Phone Marcos Garcia MD Primary Care Provider [phone] Encounter Details Date Type Department Care Team (Late st Contact Info) Description 02/29/2024 Lab Requisition [facility] Lab [address] [facility] [place] [address] Marcos Garcia MD [address] [place] [address] [address] [place] Essential (primary) hypertension Social History Tobacco Use [...] LAB HEMETOLOGY METHOD 02/29/2024 9:09 AM EST [facility] LAB RBC 4.60 4.50 - 5.50 M/mcL LAB HEMETOLOGY METHOD 02/29/2024 9:09 AM EST [facility] LAB Hemoglobin 14.5 13.5 - 17.5 g/dL LAB HEMETOLOGY METHOD 02/29/2024 9:09 AM EST [facility] LAB Hematocrit 43.5 42.0 - 54.0 % LAB HEMETOLOGY METHOD 02/29/2024 9:09 AM [facility] LAB MCV 95.6 79.0 - 98.0 FL LAB HEMETOLOGY METHOD 02/29/2024 9:09 AM EST [facility] LAB MCH 31.9 27.0 - 32.0 pcg LAB HEMETOLOGY METHOD 02/29/2024 9:09 AM EST [facility] LAB MCHC 33.3 32.0 - 37.0 g/dL LAB HEMETOLOGY METHOD 02/29/2024 9:09 AM [facility] LAB RDW 12.2 11.0 - 15.0 % LAB HEMETOLOGY METHOD 02/29/2024 9:09 AM [facility] LAB Platelets 211 130 - 400 K/mcL LAB HEMETOLOGY METHOD 02/29/2024 9:09 AM EST [facility] LAB MPV 9.8 7.0 - 11.0 FL LAB HEMETOLOGY METHOD 02/29/2024 9:09 AM [facility] LAB NRBC 0.0 <1.0 % LAB HEMETOLOGY METHOD 02/29/2024 9:09 AM [facility] LAB NRBC Absolute 0.00 <0.10 K/mcL LAB HEMETOLOGY METHOD 02/29/2024 9:09 AM EST [facility] Blood Venous blood specimen / Unknown 02/29/2024 7:54 AM EST 02/29/2024 8:54 AM EST Marcos Garcia MD LAB BLOOD ORDERABLES [facility] LAB [address] [place] [address], * (ABNORMAL) Carbamazepine level, total (02/29/2024 7:54 AM EST) Carbamazepine Level 6.5(L) 8.0 - 12.0 mcg/mL LAB CHEMISTRY METHOD 02/29/2024 9:26 AM EST [facility] Blood Venous blood specimen / Unknown 02/29/2024 7:54 AM EST 02/29/2024 8:54 AM EST Marcos Garcia MD LAB BLOOD ORDERABLES Performing Organization Address City/[facility]/ZIP Co de Phone Number [facility] LAB [address] [place] [address], [place] [phone] * (ABNORMAL) Ammonia (02/29/2024 7:54 AM EST) Ammonia 39(H) 11 - 35 mcmol/L LAB CHEMISTRY METHOD 02/29/2024 9:26 AM EST [facility] Blood Venous blood specimen / Unknown 02/29/2024 7:54 AM EST 02/29/2024 8:54 AM EST Marcos Garcia MD LAB BLOOD ORDERABLES Performing Organization Address City/[facility]/ZIP Co de Phone Number [facility] LAB [address] [place] [address], [place] [phone] documented in this encounter Visit Diagnoses Diagnosis Essential (primary) hypertension Unspecified essential hypertension documented in this encounter Care Teams Resident Advisor Relationship Specialty Start Date End Date Marcos Garcia MD [address] [place] [address] Dr [address] [place], [place] PCP - General Internal Medicine 05/15/24 documented as of this encounter
--- OUTSIDE RECORDS SUMMARY | 2024-05-23 10:20 | XMS_ITS | Clinical Summary ---
Author Organization [facility] Address [address] [place] [address] Phone Care Team Providers Care Realty Loan Specialist Name Role Phone Marcos Garcia MD Primary Care Provider [phone] Encounters Date Type Department Care Team Description 05/03/2024 Lab Requisition [facility] [address] [place] [address] Marcos Garcia MD Essential (primary) hypertension 02/29/2024 Lab Requisition [facility] [address] [place] [address] Marcos Garcia MD Essential (primary) [...] mmol/L LAB CHEMISTRY METHOD 05/03/2024 8:11 AM [facility] Potassium 3.8 3.5 - 5.5 mmol/L LAB CHEMISTRY METHOD 05/03/2024 8:11 AM [facility] Chloride 104 96 - 110 mmol/L LAB CHEMISTRY METHOD 05/03/2024 8:11 AM [facility] CO2 27 21 - 32 mmol/L LAB CHEMISTRY METHOD 05/03/2024 8:11 AM [facility] Anion Gap 6 3 - 11 LAB CHEMISTRY METHOD 05/03/2024 8:11 AM [facility] Glucose 100 70 - 100 [...] EST Marcos Garcia MD LAB BLOOD ORDERABLES [facility] [address] [place] [address], * Complete blood count (02/29/2024 7:54 AM EST) [facility] Signature WBC 5.9 4.8 - 10.8 K/mcL LAB HEMETOLOGY METHOD 02/29/2024 9:09 AM [facility] RBC 4.60 4.50 - 5.50 M/mcL LAB HEMETOLOGY METHOD 02/29/2024 9:09 AM [facility] Hemoglobin 14.5 13.5 - 17.5 g/dL LAB HEMETOLOGY METHOD 02/29/2024 9:09 AM [facility] Hematocrit 43.5 42.0 - 54.0 % LAB HEMETOLOGY METHOD 02/29/2024 9:09 AM [facility] MCV 95.6 79.0 - 98.0 FL LAB HEMETOLOGY METHOD 02/29/2024 9:09 AM [facility] MCH 31.9 27.0 - 32.0 pcg LAB HEMETOLOGY METHOD 02/29/2024 9:09 AM [facility] MCHC 33.3 32.0 - 37.0 g/dL LAB HEMETOLOGY METHOD 02/29/2024 9:09 AM [facility] RDW 12.2 11.0 - 15.0 % LAB HEMETOLOGY METHOD 02/29/2024 9:09 AM [facility] Platelets 211 130 - 400 K/mcL LAB HEMETOLOGY METHOD 02/29/2024 9:09 AM [facility] MPV 9.8 7.0 - 11.0 FL LAB HEMETOLOGY METHOD 02/29/2024 9:09 AM [facility] NRBC 0.0 <1.0 % LAB HEMETOLOGY METHOD 02/29/2024 9:09 AM EST [facility] NRBC Absolute 0.00 <0.10 K/mcL LAB HEMETOLOGY METHOD 02/29/2024 9:09 AM EST [facility] Blood Venous blood specimen / Unknown 02/29/2024 7:54 AM EST 02/29/2024 8:54 AM EST Marcos Garcia MD LAB BLOOD ORDERABLES Performing Organization Address City/[facility]/ZIP Co de Phone Number [facility] [address] [place] [address], * (ABNORMAL) Ammonia (02/29/2024 7:54 AM EST) Ammonia 39(H) 11 - 35 mcmol/L LAB CHEMISTRY METHOD 02/29/2024 9:26 AM EST [facility] Blood Venous blood specimen / Unknown 02/29/2024 7:54 AM EST 02/29/2024 8:54 AM EST Marcos Garcia MD LAB BLOOD ORDERABLES Performing Organization Address [facility]/ZIP Co de Phone Number [facility] [address] [place] [address], * (ABNORMAL) Carbamazepine level, total (02/29/2024 7:54 AM EST) Carbamazepine Level 6.5(L) 8.0 - 12.0 mcg/mL LAB CHEMISTRY METHOD 02/29/2024 9:26 AM EST [facility] Blood Venous blood specimen / Unknown 02/29/2024 7:54 AM EST 02/29/2024 8:54 AM EST Marcos Garcia MD LAB BLOOD ORDERABLES Performing Organization Address City/[facility]/ZIP Co de Phone Number [facility] [address] [place] [address], [place] [phone] from Last 3 Months Care Teams Realty Loan Specialist Relationship Specialty Start Date End Date Marcos Garcia MD [address] [place] [address] Dr [address] [place] [address] [place] PCP - General Internal Medicine 05/15/24
== END 2024-05-23 10:44 | disposition home or self-care (01) ==
PROVIDERS: PCP Hospitalist; Visit Provider Physician Assistant
DX: S42.295A Other nondisplaced fracture of upper end of left humerus, initial encounter for closed fracture (principal)
CPT/HCPCS: 99213

== ENCOUNTER → 2024-05-23 09:47 | Outpatient (BNV) | payer MEDICAID, SELFPAY | PROVIDERS: Visit Provider Radiology Diagnostic Radiology | DX: M25.512 Pain in left shoulder (principal) | CPT/HCPCS: 73030 ==